=== PATIENT | male | born 1995 | race Caucasian/White ===

== ENCOUNTER 2018-11-19 12:47 | Emergency (ER) | payer OTHER ==
[~2018-11-19] VITALS: Ht 175.3 cm; Wt 63.5 kg
[2018-11-19] MEDS ORDERED: NAPROSYN500 MG PO (13:50)
[2018-11-19 13:59] VITALS: BP 106/51
== END 2018-11-19 13:59 | disposition home or self-care (01) ==
LOC: ER 12:47
DX: S09.8XXA Other specified injuries of head, initial encounter (principal); M25.512 Pain in left shoulder; F17.210 Nicotine dependence, cigarettes, uncomplicated; Z88.0 Allergy status to penicillin; V89.2XXA Person injured in unspecified motor-vehicle accident, traffic, initial encounter; Y93.89 Activity, other specified; Y92.89 Other specified places as the place of occurrence of the external cause; Y99.8 Other external cause status